=== PATIENT | female | born 1975 | race Caucasian/White ===

== ENCOUNTER 2018-09-15 05:49 | Inpatient (IN) | payer BC ==
[~2018-09-15] VITALS: Ht 157.5 cm; Wt 53.5 kg
[2018-09-15] VITALS (28 sets, daily range): BP systolic 101–129; BP diastolic 56–80; PULSE 78–119; RESP 14–20; Ht 157.5 cm; Wt 53.5 kg
--- NOTE | 2018-09-15 05:29 | HPN ---
Date/Time of Note Date/Time of Note DATE: 09/15/18 TIME: 05:28 Interval H&P Admission Note Pt. seen H&P reviewed: No system changes JOVANI SANTOS MD Sep 15, 2018 05:29
--- NOTE | 2018-09-15 05:31 | OPR ---
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 Operation/Procedure Performed Right total hip arthroplasty Surgeon see signature line Marine Reporter José Luis Ryder DO Second Marine Reporter: JOHNNY LOPEZ PA-C Anesthesia Type: general Estimated Blood Loss: 100 - 150 ml's Transfusion none Specimen None Grafts/Implants See body of op note Complications none Pt Condition Post Procedure: stable Disposition: PACU Procedure Description OPTICAL MANAGER SURGEON: José Luis Ryder DO was asked to be present at my request as a result of the complexity associated with this procedure including positioning of the extremity, positioning of the instrumentation and protection of the ne urovascular structures. In my opinion, the assistance offered by a surgical coder is insufficient and Dr. Ryder should be compensated for his time. PROCEDURE IN DETAIL: Following the administration of general endotracheal anesthesia supplemented with a spinal anesthetic, the patient was placed in the supine position. The right lower extremity then prepped and draped in the usual sterile fashion. A agriculture manager radiograph was obtained for preliminary limb length and femoral size as well as acetabular size. A lateral incision was then made exposing the tensor fascia the fascia was incised the tensor was retracted laterally and the vessels were cauterized. The anterior capsule was then identified and prepared. A capsulectomy was then performed and the femoral head was then evaluated. Severe arthritic changes were noted with collapse secondary to avascular necrosis. A femoral head cut was then made in the appropriate degree of version and inclination. The acetabulum was then exposed and a capsulectomy and labrectomy were completed. The central portion was then entered and serially reamed up to the 51 mm size. A Depuy [place] cup which is T2 mm in size with a standard liner was then fit into position with solid fixation. A the mm screw was used for additional fixation. Attention was then directed to the femur, the femur was exposed and prepared. The canal was entered and serially reamed up to the size 5 Actis. A size 5 mm Depuy Actis stem was then inserted with solid fixation. A 6 mm, +1.5 mm femoral head, which was ceramic was then inserted. The leg was taken through full range of motion with no evident instability. In addition, radiographs revealed excellent position with reproduction of the limb lengths within a millimeter. The wound was irrigated thoroughly. The wound was then closed in layers and a Prenio for the final cover. This was watertight. Estimated blood loss was procedure was 150 cc. Postoperative radiographs will be obtained in the recovery room. JOVANI SANTOS MD Sep 15, 2018 05:31
[2018-09-15] MEDS ORDERED: SOD CHLORIDE 0.9% 100 ML, TRANEXAMIC ACID 3,000 MG IRR ONE ×2 (06:00)
[2018-09-15] MEDS ORDERED: DEXAMETHASONE 1 MG TAB PO ONE (06:00)
[2018-09-15] MEDS ORDERED: LACTATED RINGER'S 1,000 ML IV* SCH (06:00)
[2018-09-15] MEDS ORDERED: GABAPENTIN 300 MG CAP PO ONE (06:00)
[2018-09-15] MEDS ORDERED: BUPIVACAINE 0.5% (SDV) 30 ML, morphine SULFATE (PF) 8 MG, EPINEPHrine 0.3 MG, KETOROLAC... IRR SCH ×7 (06:00)
[2018-09-15] MEDS ORDERED: TRANEXAMIC ACID 1,000 MG in DEXTROSE 5% 100 ML IVPB ONE (06:00)
[2018-09-15] MEDS ORDERED: CEFAZOLIN 2 GM/50 ML (PMX) 50 ML IVPB ONE (06:00)
[2018-09-15] MEDS ORDERED: HYDR200T5 PO (06:32)
[2018-09-15] MEDS ORDERED: BUPR100T14 PO (06:32)
[2018-09-15] MEDS ORDERED: HYDR-3980 PO (06:33)
[2018-09-15] MEDS ORDERED: DOXY100T20 PO (06:35)
[2018-09-15] MEDS ORDERED: VENL75TA PO (06:35)
[2018-09-15] MEDS ORDERED: PREG50CA PO (06:36)
[2018-09-15] MEDS ORDERED: QUET50TA22 PO (06:36)
[2018-09-15] MEDS ORDERED: PROM25TA14 PO (06:36)
[2018-09-15] MEDS ORDERED: POLYMYXIN/BACITRACIN 1L IRRIG ONE (06:44)
[2018-09-15] MEDS ORDERED: EPHEDrine SULFATE 50 MG/5 ML SYG ONE (07:00)
[2018-09-15] MEDS ORDERED: DESFLURANE 15 MIN ONE (07:00)
--- NOTE | 2018-09-15 07:02 | PREAC ---
Date/Time of Note Date/Time of Note DATE: 09/15/18 TIME: 07:00 Anesthesia Eval and Record Evaluation Time Pre-Procedure Interview DATE: 09/15/18 TIME: 07:00 Age 43 Sex female NPO: 8 hrs Preoperative diagnosis RIGHT HIP OA Planned procedure RIGHT NICANOR Past Medical History Past Medical History: Includes Musculoskeletal: Other (SLE) GI: Other (CROHN'S DISEASE, FIBROMYALGIA) Surgery & Anesthesia Issues No known issue Meds Anticoagulation: No Beta Anna within 24 hr: No Reason Beta Anna not given: Pt. not on B-Anna Reported Medications Pregabalin* (Lyrica*) 50 Mg Capsule, 50 MG PO TID, CAP 09/15/18 Promethazine Hcl* (Phenergan*) 25 Mg Tablet, 25 MG PO Q6H PRN for NAUSEA AND/OR VOMITING, TAB 09/15/18 Quetiapine Fumarate* (Quetiapine Fumarate*) 50 Mg Tablet, 50 MG PO HS, TAB 09/15/18 Doxycycline Hyclate* (Doxycycline Hyclate*) 100 Mg Tablet.dr, 100 MG PO BID, TAB 09/15/18 Venlafaxine Hcl* (Venlafaxine Hcl*) 75 Mg Tablet, 225 MG PO DAILY, TAB 09/15/18 Hydrocodone/Acetaminophen ([place] 10-325 Tablet) 1 Each Tablet, 1 EACH PO Q6 PRN for PAIN, TAB 09/15/18 Bupropion Hcl* (Bupropion Hcl*) 100 Mg Tablet, 100 MG PO BID, TAB 09/15/18 Hydroxychloroquine Sulfate* (Plaquenil*) 200 Mg Tab, 200 MG PO BID, TAB 09/15/18 Current Medications Bupivacaine HCl/ Morphine Sulfate/ Epinephrine/ Ketorolac Tromethamine/ Clonidine/Sodium Chloride/ Vancomycin HCl INTRA-OP IRR ; Start 09/15/18 at 06:00 Lactated Ringer's 1,000 ml @ 20 mls/hr Q24H IV* Last administered on 09/15/18at 06:41; Admin Dose 20 MLS/HR; Start 09/15/18 at 06:00; Stop 09/15/18 at 23:00 Meds reviewed: Yes Allergies Coded Allergies: Latex, Natural Rubber (Verified Allergy, Unknown, 09/15/18) Sulfa (Sulfonamide Antibiotics) (Verified Allergy, Unknown, 09/15/18) Allergies Reviewed: Yes Labs/Studies Labs Reviewed: Reviewed by anesthesiologist Result Diagram: 09/15/18 0605 Laboratory Tests 09/15/18 06:05 test: Negative Pre-procedure Exam Last vitals Vital Signs Date Temp Pulse Resp B/P (MAP) Pulse Ox O2 O2 Flow FiO2 Time Delivery Rate 09/15/18 98.7 84 18 115/78 98 Room Air 06:45 (90) Airway: Adequate mouth opening, Adequate thyromental dist Mallampati: Mallampati II Teeth: Normal Lung: Normal Heart: Normal ASA Physical Status ASA physical status: 2 Emergency: None Planned Anesthetic General/MAC: ETT Neuraxial: Spinal Planned Pain Management Parenteral pain med, Local by surgeon Pre-operative Attestations Prior to commencing anesthesia and surgery, the patient was re-evaluated, there was verification of: *The patient's identity *The results of appropriate recent lab work and preoperative vital signs *The above evaluation not changing prior to induction *Anesthetic plan, risk benefits, alternative and complications discussed with patient/family; questions answered; patient/family understands, accepts and wishes to proceed. Tesfaye Thompson M.D. Sep 15, 2018 07:02
[2018-09-15] MEDS ORDERED: morphine SULFATE/PF (10 MG/10 ML) INJ ONE (07:04)
[2018-09-15] MEDS ORDERED: FENTAnyl 50 MCG/ML VIAL ONE (07:11)
[2018-09-15] MEDS ORDERED: ROCURONIUM 50 MG INJ ONE (07:11)
[2018-09-15] MEDS ORDERED: MIDAZOLAM 1 MG/ML 2 ML INJ ONE (07:11)
[2018-09-15] MEDS ORDERED: CEFAZOLIN 1 GM INJ ONE (07:11)
[2018-09-15] MEDS ORDERED: PROPOFOL 20 ML ONE (07:11)
[2018-09-15] MEDS ORDERED: NEOSTIGMINE 3 MG/3 ML SYRINGE ONE (07:11)
[2018-09-15] MEDS ORDERED: ONDANSETRON 4 MG INJ ONE (07:11)
[2018-09-15] MEDS ORDERED: DEXAMETHASONE 4 MG/ML 1 ML INJ ONE (07:11)
[2018-09-15] MEDS ORDERED: GLYCOPYRROLATE 0.4 MG INJ ONE (07:11)
[2018-09-15] MEDS ORDERED: CA CHLORIDE (GM) 10% 10 ML INJ ONE (07:52)
[2018-09-15] MEDS ORDERED: THROMBIN 5000 UNIT VIAL ONE (07:52)
[2018-09-15] MEDS ORDERED: IPRATROPIUM (NEB) 0.5 MG/2.5 ML AMP HHN PRN (08:30)
[2018-09-15] MEDS ORDERED: TRIMETHOBENZAMIDE 100 MG/ML VIAL IM PRN ×2 (08:30)
[2018-09-15] MEDS ORDERED: DIPHENHYDRAMINE 50 MG INJ IV PRN ×3 (08:30→09:00)
[2018-09-15] MEDS ORDERED: NALBUPHINE HCL (10 MG/1 ML) INJ IV PRN (08:30)
[2018-09-15] MEDS ORDERED: LABETALOL HCL 20MG INJ IV PRN (08:30)
[2018-09-15] MEDS ORDERED: NALOXONE (0.4 MG/ML) INJ IV PRN (08:30)
[2018-09-15] MEDS ORDERED: OXYCODONE/ACETAMINOPHEN (5/325) TAB PO PRN ×2 (08:30)
[2018-09-15] MEDS ORDERED: hydrALAzine 20 MG INJ IV PRN (08:30)
[2018-09-15] MEDS ORDERED: HYDROmorphONE 0.5 MG/0.5 ML SYG IV PRN ×2 (08:30)
[2018-09-15] MEDS ORDERED: ONDANSETRON 4 MG INJ IV PRN ×3 (08:30→09:00)
[2018-09-15] MEDS ORDERED: MIDAZOLAM 1 MG/ML 2 ML INJ IV PRN (08:30)
[2018-09-15] MEDS ORDERED: FENTAnyl 50 MCG/ML VIAL IV PRN ×3 (08:30)
[2018-09-15] MEDS ORDERED: KETOROLAC 15 MG INJ IV PRN (08:30)
[2018-09-15] MEDS ORDERED: EPHEDrine SULFATE 50 MG/5 ML SYG IV PRN (08:30)
[2018-09-15] MEDS ORDERED: ALBUTEROL 0.083% (NEB) 2.5 MG/3 ML AMP HHN PRN (08:30)
[2018-09-15] MEDS ORDERED: HYDROmorphONE 1 MG/5 ML IV SYRINGE IV PRN ×2 (08:30)
[2018-09-15] MEDS ORDERED: MEPERIDINE 25 MG INJ IV PRN (08:30)
[2018-09-15] MEDS ORDERED: ZOLPIDEM 5 MG TAB PO PRN (09:00)
[2018-09-15] MEDS ORDERED: oxyCODONE 5 MG TAB PO PRN ×2 (09:00)
[2018-09-15] MEDS ORDERED: NACL 0.9% 3 ML SYG IV SCH (09:00)
[2018-09-15] MEDS ORDERED: MAGNESIUM HYDROXIDE 30ML CUP PO PRN (09:00)
[2018-09-15] MEDS ORDERED: ACETAMINOPHEN 1000MG/100ML IV 100 ML IVPB SCH (09:00)
[2018-09-15] MEDS: LACTATED RINGER'S 1,000 ML IV SCH ×2 (09:00→15:47)
[2018-09-15] MEDS: SENNA/DOCUSATE NA (8.6MG/50MG) TAB PO SCH ×2 (09:00→21:00)
[2018-09-15] MEDS ORDERED: SUGAMMADEX SODIUM 200 MG/2 ML VIAL IV ONE (09:11)
[2018-09-15] MEDS ORDERED: METOCLOPRAMIDE 10 MG INJ ONE (09:12)
[2018-09-15] MEDS ORDERED: HYDROCORTISONE 100 MG INJ ONE (09:13)
--- NOTE | 2018-09-15 09:42 | PAC ---
Date/Time of Note Date/Time of Note DATE: 09/15/18 TIME: 09:42 Post-Anesthesia Notes Post-Anesthesia Note Last documented vital signs Vital Signs Date Temp Pulse Resp B/P (MAP) Pulse Ox O2 O2 Flow FiO2 Time Delivery Rate 09/15/18 98.0 09:35 09/15/18 84 18 115/78 98 Room Air 06:45 (90) Activity: WNL Respiratory function: WNL Cardiovascular function: WNL Mental status: Baseline Pain reasonably controlled: Yes Hydration appropriate: Yes Nausea/Vomiting absent: Yes Tesfaye Thompson M.D. Sep 15, 2018 09:42
[2018-09-15] MEDS ORDERED: CEFAZOLIN 1 GM/50 ML (PMX) 50 ML IVPB ONE (09:43)
--- NOTE | 2018-09-15 09:45 | NUR ---
pacu pt awake alert room air no resp distress vs stable lt ac iv site clear rt hip dssg with dermoband was medicated with demerol 25mg for shivering and dilaudid 0.4mg for pain ancef i gram was given per protochol family notified
[2018-09-15] MEDS: CEFAZOLIN 1 GM/50 ML (PMX) 50 ML IVPB SCH ×2 (09:46→22:29)
[2018-09-15] MEDS: HYDROmorphONE 1 MG/5 ML IV SYRINGE IV PRN ×2 (10:28→10:52)
--- NOTE | 2018-09-15 10:40 | NUR ---
pacu pt awake alert room air no resp distress was medicated with dilaudid for painrt hip with dermoband dssg site clear family were notified report given to daniel DAVIS OWUSU IN PLACE LT AC IVSITE CLEAR
[2018-09-15] MEDS: DEXAMETHASONE 2 MG TAB PO SCH ×2 (11:49→17:48)
[2018-09-15] MEDS: ACETAMINOPHEN 500 MG TAB PO SCH ×2 (11:49→17:48)
[2018-09-15] MEDS: KETOROLAC 30 MG INJ IV PRN ×2 (11:52→19:46)
--- NOTE | 2018-09-15 12:11 | NUR ---
pacu pt from or on o2 mask no resp distress no c/o pain vs stable rt ear with bandaid dssg site clearrt hand iv site clear on rt av dr guardado visited the pt family notified Addendum: 09/15/18 at 1226 by WALLY AYON RN wrong patient
[2018-09-15] MEDS: PREGABALIN 25 MG CAP PO SCH ×2 (13:09→20:30)
[2018-09-15] MEDS: HYDROCORTISONE 100 MG INJ IV SCH ×2 (13:59→21:13)
[2018-09-15] MEDS: VENLAFAXINE 75 MG TABLET PO SCH (15:46)
[2018-09-15] MEDS: HYDROmorphONE 1 MG/ML SYG IV PRN ×3 (16:10→23:57)
[2018-09-15] MEDS: oxyCODONE 5 MG TAB PO PRN ×2 (18:16→22:23)
--- NOTE | 2018-09-15 19:10 | NUR ---
End of shift note Patient remains alert and oriented x4, resting comfortably in bed. Family remains at the bedside. Patient maintained on pulse ox monitoring, Hr ranging from 115-130. Dr Parekh covering for Dr Garner was informed regarding tachycardia. Patient remains asymptomatic no new orders received. Patient was given several doses of prn pain medications and patient verbalized relief of pain. Patient informed me surgical incision noted to be draining prior to shift change, Dr Parekh informed and orders received to reinforce dressing. Dressing applied with incoming nurse Anabel available to witness. Patient encouraged to stay in a laying position to help prevent additional pressure being added to the incision site. Aunt remains at the bedside. Patient educated on safety precautions and encouraged to use the call bustos for assistance. Call bustos remains within reach.
[2018-09-15] MEDS: BUPROPION 100 MG TAB PO SCH (20:31)
[2018-09-15] MEDS: HYDROXYCHLOROQUINE 200 MG TAB PO SCH (20:31)
[2018-09-15] MEDS ORDERED: QUETIAPINE 25 MG TAB PO SCH (21:00)
[2018-09-15] MEDS ORDERED: GABAPENTIN 300 MG CAP PO SCH (21:00)
[2018-09-16 00:01] VITALS: BP 113/71; PULSE 104; RESP 17
[2018-09-16] MEDS: KETOROLAC 30 MG INJ IV PRN ×2 (02:04→09:40)
[2018-09-16] MEDS: oxyCODONE 5 MG TAB PO PRN ×4 (02:08→11:48)
[2018-09-16] MEDS: ACETAMINOPHEN 500 MG TAB PO SCH (02:17)
[2018-09-16] MEDS: LACTATED RINGER'S 1,000 ML IV SCH (02:18)
[2018-09-16] MEDS: HYDROmorphONE 1 MG/ML SYG IV PRN ×3 (03:48→10:28)
[2018-09-16] MEDS: HYDROCORTISONE 100 MG INJ IV SCH (05:41)
[2018-09-16] MEDS: DEXAMETHASONE 2 MG TAB PO SCH ×2 (05:41)
[2018-09-16] MEDS: CEFAZOLIN 1 GM/50 ML (PMX) 50 ML IVPB SCH (05:41)
--- NOTE | 2018-09-16 05:56 | PDOCDIS ---
Discharge Instructions DIAGNOSIS Discharge Diagnosis Avascular necrosis of the right hip CONDITION [id number] Patient Condition: [id number] Good HOME CARE INSTRUCTIONS: [id number] Diet Instructions: [id number] Regular ACTIVITY: [id number] Activity Restrictions: [id number] Slowly Increase Activity Keep Limb Elevated [id number] Bathing Restrictions: [id number] Shower FOLLOW UP/APPOINTMENTS Follow-up Plan 2 weeks in the office SCHOOL/WORK RELEASE May return to School/Work with: With Restrictions School/Work Release Comment: No hip extension for 6 weeks JOVANI SANTOS MD Sep 16, 2018 05:56
--- NOTE | 2018-09-16 05:56 | DS ---
Date/Time of Note Date/Time of Note DATE: 09/16/18 TIME: 05:55 Discharge Summary Admission/Discharge Info Admit Date/Time Sep 15, 2018 at 05:49 Discharge Date/Time September 16, 2018 following clearance by physical therapy Discharge Diagnosis Avascular necrosis of the right hip Patient Condition: Good Hospital Course Patient was admitted and underwent uncomplicated procedure. Postoperative day #1 she ambulated independently and was sent home for follow-up in 2 weeks Home Meds Reported Medications Pregabalin* (Lyrica*) 50 Mg Capsule, 50 MG PO TID, CAP 09/15/18 Promethazine Hcl* (Phenergan*) 25 Mg Tablet, 25 MG PO Q6H PRN for NAUSEA AND/OR VOMITING, TAB 09/15/18 Quetiapine Fumarate* (Quetiapine Fumarate*) 50 Mg Tablet, 50 MG PO HS, TAB 09/15/18 Doxycycline Hyclate* (Doxycycline Hyclate*) 100 Mg Tablet.dr, 100 MG PO BID, TAB 09/15/18 Venlafaxine Hcl* (Venlafaxine Hcl*) 75 Mg Tablet, 225 MG PO DAILY, TAB 09/15/18 Hydrocodone/Acetaminophen ([place] 10-325 Tablet) 1 Each Tablet, 1 EACH PO Q6 PRN for PAIN, TAB 09/15/18 Bupropion Hcl* (Bupropion Hcl*) 100 Mg Tablet, 100 MG PO BID, TAB 09/15/18 Hydroxychloroquine Sulfate* (Plaquenil*) 200 Mg Tab, 200 MG PO BID, TAB 09/15/18 Primary Care Provider Not On Staff Doctor Pending Labs Laboratory Tests Test 09/15/18 06:05 09/15/18 12:12 09/16/18 04:32 Sodium Level 141 mmol/L (135-144) Potassium Level 4.5 mmol/L (3.5-5.1) Chloride Level 107 mmol/L (97-110) Carbon Dioxide 27 mmol/L (21-31) Level Anion Gap 7 (5-13) Blood Urea 16 mg/dl (7-20) Nitrogen Creatinine 0.69 mg/dl (0.44-1.00) Est Glomerular > 60 mL/min (>60) Filtrat Rate mL/min Glucose Level 95 mg/dl (70-220) Calcium Level 9.3 mg/dl (8.4-10.2) Total Bilirubin 0.1 mg/dl (0.2-1.3) Direct Bilirubin 0.00 mg/dl (0.00-0.20) Indirect Bilirubin 0.1 mg/dl (0-1.1) Aspartate Amino 61 IU/L (15-46) Transf (AST/SGOT) Alanine 30 IU/L (13-69) Aminotransferase (A LT/SGPT) Alkaline 111 IU/L (42-121) Phosphatase Total Protein 7.9 g/dl (6.1-8.1) Albumin 4.2 g/dl (3.3-4.9) Globulin 3.70 g/dl (1.3-3.2) Albumin/Globulin 1.13 Ratio White Blood Count 10.4 16.0 10^3/ul (4.8-10.8) 10^3/ul (4.8-10.8) Red Blood Count 2.83 2.64 10^6/ul (4.20-5.40 10^6/ul (4.20-5.40 ) ) Hemoglobin 9.0 8.3 g/dl (12.0-16.0) g/dl (12.0-16.0) Hematocrit 27.6 % (37.0-47.0) 25.3 % (37.0-47.0) Mean Corpuscular 97.5 95.8 Volume fl (82.0-101.0) fl (82.0-101.0) Mean Corpuscular 31.8 31.4 Hemoglobin pg (29.0-33.0) pg (29.0-33.0) Mean Corpuscular 32.6 32.8 Hemoglobin Concent g/dl (32.0-37.0) g/dl (32.0-37.0) Red Cell 12.2 % (11.5-14.5) 12.0 % (11.5-14.5) Distribution Width Platelet Count 180 195 10^3/UL (140-415) 10^3/UL (140-415) Mean Platelet 9.0 fl (7.4-10.4) 9.7 fl (7.4-10.4) Volume Immature 0.900 0.600 Granulocytes % % (0.001-0.429) % (0.001-0.429) Neutrophils % 92.7 % (39.0-77.0) 88.8 % (39.0-77.0) Lymphocytes % 5.0 % (15.0-51.0) 3.0 % (15.0-51.0) Monocytes % 1.1 % (0.0-11.0) 7.5 % (0.0-11.0) Eosinophils % 0.1 % (0.0-7.0) 0.0 % (0.0-7.0) Basophils % 0.2 % (0.0-2.0) 0.1 % (0.0-2.0) Nucleated Red Blood 0.0 0.0 Cells % /100WBC (0.0-0.0) /100WBC (0.0-0.0) Immature 0.090 0.090 Granulocytes # 10^3/ul (0.0-0.031 10^3/ul (0.0-0.031 ) ) Neutrophils # 9.6 14.2 10^3/ul (1.6-7.5) 10^3/ul (1.6-7.5) Lymphocytes # 0.5 0.5 10^3/ul (0.8-2.9) 10^3/ul (0.8-2.9) Monocytes # 0.1 1.2 10^3/ul (0.3-0.9) 10^3/ul (0.3-0.9) Eosinophils # 0.0 0.0 10^3/ul (0.0-0.5) 10^3/ul (0.0-0.5) Basophils # 0.0 0.0 10^3/ul (0.0-0.1) 10^3/ul (0.0-0.1) Nucleated Red Blood 0.0 0.0 Cells # 10^3/ul (0.0-0.0) 10^3/ul (0.0-0.0) JOVANI SANTOS MD Sep 16, 2018 05:56
--- NOTE | 2018-09-16 05:57 | PN ---
Date/Time of Note Date/Time of Note DATE: 09/16/18 TIME: 05:56 Subjective Awake and alert with moderate pain. Apparently, she feels that she is not really getting adequate coverage with the intravenous and intramuscular medications. She does have a complex medical history and has multiple providers providing her with several narcotic medications on an ongoing basis. I explained this to her and indicated to her that for the first 24-48 hours she is going to have to try to put up with a little bit of increased pain and she will get through this comfortably. I will send an additional medication dose to her pharmacy later today. Objective Vitals Vital Signs Date Temp Pulse Resp B/P (MAP) Pulse Ox O2 O2 Flow FiO2 Time Delivery Rate 09/16/18 98.3 104 17 113/71 96 Room Air 00:01 (85) Intake and Output 09/15/18 09/15/18 09/16/18 1515:00 23:00 07:00 IntakeIntake Total 3390 ml 2320 ml OutputOutput Total 400 ml 2100 ml BalanceBalance 2990 ml 220 ml Wound is clean and dry with sterile dressing in place. Neurologically intact. No signs of DVT. Results Result Diagram: 09/16/18 0432 09/15/18 0605 Medications Medications Current Medications Hydromorphone HCl (Dilaudid) 0.2 mg Q2H PRN IV PAIN LEVEL 1-5; Start 09/15/18 at 08:30; Stop 09/16/18 at 07:06 Hydromorphone HCl (Dilaudid) 0.4 mg Q2H PRN IV PAIN LEVEL 6-10 Last administered on 09/15/18at 09:58; Admin Dose 0.4 MG; Start 09/15/18 at 08:30; Stop 09/16/18 at 07:06 Ketorolac Tromethamine (Toradol) 30 mg Q6H PRN IV PAIN LEVEL 6-10 Last administered on 09/16/18at 02:04; Admin Dose 30 MG; Start 09/15/18 at 08:30; Stop 09/18/18 at 08:29 Ketorolac Tromethamine (Toradol) 15 mg Q6H PRN IV PAIN LEVEL 1-5; Start 09/15/18 at 08:30; Stop 09/18/18 at 08:29 Diphenhydramine HCl (Benadryl) 25 mg Q4H PRN IV PRURITUS; Start 09/15/18 at 08:30; Stop 09/16/18 at 07:06 Nalbuphine HCl (Nubain) 10 mg Q4H PRN IV PRURITUS; Start 09/15/18 at 08:30; Stop 09/16/18 at 07:06 Ondansetron HCl (Zofran Inj) 4 mg Q6H PRN IV NAUSEA AND/OR VOMITING Last administered on 09/15/18 18:16; Admin Dose 4 MG; Start 09/15/18 at 08:30; Stop 09/16/18 at 07:06 Trimethobenzamide HCl (Tigan) 200 mg Q6H PRN IM NAUSEA AND/OR VOMITING Last administered on 09/15/18 20:29; Admin Dose 200 MG; Start 09/15/18 at 08:30; Stop 09/16/18 at 07:06 Naloxone HCl (Narcan) 0.2 mg Q2M PRN IV DECREASED REPIRATORY RATE; Start 09/15/18 at 08:30; Stop 09/16/18 at 07:06 Miscellaneous Information (* Miscellaneous Pharmacy Order) DURAMORPH: 0.1 MG SPI... GIVEN NEURAXIAL XX ; Start 09/15/18 at 08:30 Bupropion HCl (Wellbutrin) 100 mg BID PO Last administered on 09/15/18 20:31; Admin Dose 100 MG; Start 09/15/18 at 21:00 Hydroxychloroquine Sulfate (Plaquenil) 200 mg BID PO Last administered on 09/15/18 20:31; Admin Dose 200 MG; Start 09/15/18 at 21:00 Pregabalin (Lyrica) 50 mg TID PO Last administered on 09/15/18 20:30; Admin Dose 50 MG; Start 09/15/18 at 13:00 Venlafaxine HCl (Effexor) 225 mg DAILY PO Last administered on 09/15/18 15:46; Admin Dose 225 MG; Start 09/15/18 at 13:00 Quetiapine Fumarate (Seroquel) 50 mg HS PO Last administered on 09/15/18 21:12; Admin Dose 50 MG; Start 09/15/18 at 21:00 Lactated Ringer's 1,000 ml @ 100 mls/hr Q10H IV Last administered on 09/16/18 02:18; Admin Dose 100 MLS/HR; Start 09/15/18 at 09:00 Cefazolin Sodium 50 ml @ 100 mls/hr Q8 IVPB Last administered on 09/16/18 05:41; Admin Dose 100 MLS/HR; Start 09/15/18 at 14:00; Stop 09/16/18 at 06:29 Senna/Docusate Sodium (Senokot-S) 1 tab BID PO ; Start 09/15/18 at 09:00 Simethicone (Mylicon) 80 mg TID PRN PO DISTENSION/GAS/BLOATING; Start 09/15/18 at 09:00 Magnesium Hydroxide (Milk Of Mag) 30 ml BID PRN PO CONSTIPATION; Start 09/15/18 at 09:00 Magnesium Hydroxide (Milk Of Mag) 30 ml HS PO ; Start 09/17/18 at 21:00 Dexamethasone (Decadron) 2 mg Q6 PO Last administered on 09/16/18 05:41; Admin Dose 2 MG; Start 09/15/18 at 12:00; Stop 09/16/18 at 06:01 Gabapentin (Neurontin) 300 mg HS PO ; Start 09/15/18 at 21:00 Oxycodone HCl (Roxicodone) 15 mg Q4H PRN PO PAIN Last administered on 09/16/18at 05:40; Admin Dose 15 MG; Start 09/15/18 at 09:00 Oxycodone HCl (Roxicodone) 10 mg Q4H PRN PO PAIN Last administered on 09/15/18at 13:59; Admin Dose 10 MG; Start 09/15/18 at 09:00 Oxycodone HCl (Roxicodone) 5 mg Q4H PRN PO PAIN Last administered on 09/15/18 13:09; Admin Dose 5 MG; Start 09/15/18 at 09:00 Hydromorphone HCl (Dilaudid) 1 mg Q4H PRN IV BREAKTHROUGH PAIN Last administered on 09/16/18at 03:48; Admin Dose 1 MG; Start 09/15/18 at 09:00 Ondansetron HCl (Zofran Inj) 4 mg Q6H PRN IV NAUSEA AND/OR VOMITING; Start 09/15/18 at 09:00 Diphenhydramine HCl (Benadryl) 25 mg Q6H PRN IV PRURITUS; Start 09/15/18 at 09:00 Zolpidem Tartrate (Ambien) 10 mg HS PRN PO INSOMNIA; Start 09/15/18 at 09:00 IV Flush (NS 3 ml) 3 ml per protocol IV ; Start 09/15/18 at 09:00 Aspirin (Ecotrin) 325 mg DAILY PO ; Start 09/16/18 at 09:00 Hydrocortisone (Solu-Cortef) 100 mg Q8 IV Last administered on 09/16/18at 05:41; Admin Dose 100 MG; Start 09/15/18 at 14:00; Stop 09/17/18 at 13:59 VTE Prophylaxis Risk score (from [facility] [place]0 risk: 5 SCD applied (from [facility] [place] Yes Lines/Catheters IV Catheter Type: Saline Lock Willis in Place: No Assessment/Plan Hospital Course Patient was admitted and underwent uncomplicated procedure. Postoperative day #1 she ambulated independently and was sent home for follow-up in 2 weeks Assessment/Plan Assessment: Status post total hip replacement Plan: She will begin physical therapy and be discharged when independent. JOVANI SANTOS MD Sep 16, 2018 05:57
[2018-09-16] MEDS ORDERED: oxyCODONE 5 MG TAB PO PRN ×2 (07:30)
[2018-09-16 07:43] VITALS: BP 132/76; PULSE 91; RESP 18
[2018-09-16] MEDS: HYDROXYCHLOROQUINE 200 MG TAB PO SCH (08:40)
[2018-09-16] MEDS: BUPROPION 100 MG TAB PO SCH (08:40)
[2018-09-16] MEDS: VENLAFAXINE 75 MG TABLET PO SCH (08:40)
[2018-09-16] MEDS: PREGABALIN 25 MG CAP PO SCH (08:40)
[2018-09-16] MEDS: SENNA/DOCUSATE NA (8.6MG/50MG) TAB PO SCH (09:00)
[2018-09-16] MEDS ORDERED: ASPIRIN (EC) 325 MG TAB PO SCH (09:00)
--- NOTE | 2018-09-16 09:35 | NUR ---
asked for pain medicine and given. f/c removed with any pain. requested additional pain med in her rx, placed a call to Dr. Garner. wants to changed her pharmacy. Nurse christian informed
--- NOTE | 2018-09-16 09:49 | NUR ---
PT EVALUATION , 1 Evaluation Start Time 09:00 Evaluation Total Time 0 min Subjective Current complaint of pain Pain Scale NUMERIC Pain Intensity 5 (0-10) Patient Stated Goal for Pain Relief 0 (0-10) Pain Level Comment RT HIP . Pre Treatment Vital Signs Stable Yes - BP:132/76 HR:91 Exercise Assessment Label Bilat Lower Extremity Exercise Type Active ROM Additional Exercise Comments PRT NICANOR PROTOCOL . Supine to Sit Supervised Transfer Sit to Stand Ability Supervised Bed Mobility Sit to Supine Supervised Bed Transfer Ability Supervised Chair Transfer Ability Supervised Sitting Tolerance 15 min Patient uses wheelchair Not Applicable Gait Assist Levels Stand by Assist Assistive Devices Front Wheel Walker Ambulation Distance 250 feet Additional Gait Comments STEADY, STABLE , NO LOB , RECIPROCAL . Weight Bearing Assessment Label Right Lower Extremity Weight Bearing Status Weight Bearing as Monie Stair Climbing Ability Contact Guard Assist Number of Stairs 1 Stairs Additional Stairs Assist Comments CG A ON PLATFORM STEP . Static Sitting Balance Good Dynamic Sitting Balance Good Standing Static Balance Good Dynamic Standing Balance Fair minus Additional Balance Assessments Comments W/FWW Safety Judgement Fair Activity Tolerance Good Equipment Present A pump Additional Equipment Present PT very anxious and occ.impulsive . Post Treatment Pain Intensity 3 0-10 Variance Documentation p/s see pt note . PT Technical Record Comment PT EVALUATION , S: rn cleared , patient agreeable , O: patient is a 43 y/o female alert and oriented to self , situation , with pmh ; rt hip pain due to avascular necrosis of the rt hip, lupus , and croon's disease , on 09/15/17 underwent RT NICANOR , patient found in bed , instructed her in safety , fall precaution and anterior NICANOR precaution , performed and reviewed Thera exe's per NICANOR protocol, issued hand out , patient demonstrated good return understanding ,gait tr w/fww performed 250' SBA , gait w/fww steady,reciprocal , stable with no LOB , also stair tr on one step platform performed with cg a. vs stable tolerated treatment well , patient is cleared to ambulate with [facility] staff , RN notified . A: patient lives in a house with family with one entry stair , has been functional and ambulatory without AD , patient owns fww, crutches and cane , no DME needs , dc planning per md recommendation . P: pt bid x6 daily x1 ( thera exe's , transfer tr, gait tr w/fww wbat on rle , stair tr , patient education , training .
--- NOTE | 2018-09-16 11:55 | NUR ---
discharge packet, instructions given. medicated for pain per request. iv hl removed. no bleeding
--- NOTE | 2018-09-16 12:14 | NUR ---
=alert oriented with s/p rt hip sx with incision intact and dry with no drainage noted ,. seen by PT ambulated with assist ,. pian meds given as per pain mgt level ,. =d/c instruction given by edmund.
[2018-09-17] MEDS ORDERED: MAGNESIUM HYDROXIDE 30ML CUP PO SCH (21:00)
== END 2018-09-16 12:00 | disposition home or self-care (01) | DRG 470 ==
LOC: REC 05:49 → MS1 10:53
PROVIDERS: ADMIT Orthopaedic Surgery; ATTEND Orthopaedic Surgery
PROC: 0SR904A Replacement of Right Hip Joint with Ceramic on Polyethylene Synthetic Substitute, Uncemented, Open Approach (ICD-10-PCS; principal; 2018-09-15 07:00)
DX: M16.7 Other unilateral secondary osteoarthritis of hip (principal); K50.90 Crohn's disease, unspecified, without complications; M87.9 Osteonecrosis, unspecified; M79.7 Fibromyalgia
CPT/HCPCS: 72170; 73530; 80053; 84703; 85025; 87086; 88304; 88311; 97161; C1713; C1776; J0171; J0690; J0735; J1100; J1170; J1720; J1885; J2175; J2250; J2274; J2405; J2710; J2765; J3010; J3250; J3370; J7120